=== PATIENT | female | born 1990 | race Caucasian/White ===

== ENCOUNTER 2018-03-11 14:08 | Emergency (ER) | payer MEDICAID ==
[~2018-03-11] VITALS: Ht 162.6 cm; Wt 77.1 kg
[2018-03-11 14:16] VITALS: BP_SYST 129
[2018-03-11] MEDS ORDERED: traMADol HCL HCL 50 MG TABLET (ULTRAM) PO ONE (15:00)
[2018-03-11 15:10] VITALS: BP_SYST 129
== END 2018-03-11 15:10 | disposition home or self-care (01) ==
LOC: SED 14:08
DX: M54.30 Sciatica, unspecified side (principal)
CPT/HCPCS: 99283

== ENCOUNTER 2018-04-27 18:40 | Emergency (ER) | payer MEDICAID ==
[~2018-04-27] VITALS: Ht 162.6 cm; Wt 77.1 kg
[2018-04-27 18:40] VITALS: BP_SYST 134
[2018-04-27 19:12] VITALS: BP_SYST 130
[2018-04-27] MEDS ORDERED: KETOROLAC TROMETHAMINE 60 MG/2 ML VIAL IM ONE (19:15)
== END 2018-04-27 19:12 | disposition home or self-care (01) ==
LOC: SED 18:40
DX: M54.31 Sciatica, right side (principal); R03.0 Elevated blood-pressure reading, without diagnosis of hypertension; Z90.49 Acquired absence of other specified parts of digestive tract; Z98.51 Tubal ligation status
CPT/HCPCS: 99283